=== PATIENT | male | born 2000 | race African-American/Black ===

== ENCOUNTER 2019-11-23 01:10 | Emergency (ER) | payer BC ==
[~2019-11-23] VITALS: Ht 170.2 cm; Wt 59.0 kg
[2019-11-23 02:40] VITALS: BP 125/60
[2019-11-23] MEDS ORDERED: AMOX500C PO (02:58)
--- NOTE | 2019-11-23 02:58 | PHYS DOC ---
Past Medical History Past Medical History: No Pertinent History Past Surgical History: No Surgical History Smoking Status: Never Smoker Alcohol Use: None General Adult EDM: Chief Complaint: SORE THROAT HPI: HPI: Patient is a 19 year old male who presents with complaint of sore throat that started yesterday. Patient indicates that he is noticed that his tonsils are swollen and covered with white pockets. He states that he has pain with swallowing. He denies any fever. He denies any chest pain or shortness of breath. [] Review of Systems: Review of Systems: Constitutional: Denies fever or chills. [] HENT: Complains of sore throat. [] Respiratory: Denies cough or shortness of breath. [] Cardiovascular: Denies chest pain or edema. [] Integument: Denies rash. [] Neurologic: Denies headache, focal weakness or sensory changes. [] Heart Score: Risk Factors: Risk Factors: DM, Current or recent (<one month) smoker, HTN, HLP, family history of CAD, obesity. Risk Scores: Score 0 - 3: 2.5% MACE over next 6 weeks - Discharge Home Score 4 - 6: 20.3% MACE over next 6 weeks - Admit for Clinical Observation Score 7 - 10: 72.7% MACE over next 6 weeks - Early Invasive Strategies Allergies: Allergies: Allergies Coded Allergies Type Severity Reaction Last Updated Verified No Known Drug Allergies 11/23/19 No Physical Exam: PE: Constitutional: Well developed, well nourished, no acute distress, non-toxic appearance. [] HENT: Normocephalic, atraumatic, with tonsillar erythema, swelling and exudates bilaterally. [] Eyes: PERRLA, EOMI, conjunctiva normal, no discharge. [] Neck: Normal range of motion, no tenderness, supple, with anterior cervical lymphadenopathy. [] Cardiovascular: Regular rate and rhythm [] Lungs & Thorax: Bilateral breath sounds clear to auscultation [] Current Patient Data: Vital Signs: Vital Signs Date Time Temp Pulse Resp B/P (MAP) Pulse Ox O2 Delivery O2 Flow Rate FiO2 11/23/19 02:40 97.8 78 18 125/60 (81) 97 Room Air 97.8 EKG: EKG: [] Radiology/Procedures: Radiology/Procedures: [] Course & Med Decision Making: Course & Med Decision Making Pertinent Labs and Imaging studies reviewed. (See chart for details) [] Dragon Disclaimer: Dragon Disclaimer: This electronic medical record was generated, in whole or in part, using a voice recognition dictation system. Departure Departure Impression: Primary Impression: Tonsillitis Disposition: HOME, SELF-CARE Condition: STABLE Referrals: JUAN KENT MD (PCP) Patient Instructions: Tonsillitis Scripts Amoxicillin (AMOXICILLIN) 500 Mg Capsule 2 CAP PO BID, #40 CAP Prov: PEÑA SOSA Jr. DO 11/23/19 Justicifation of Admission Dx: Justifications for Admission: Justification of Admission Dx: Comment: (Not applicable) PEÑA SOSA Jr. DO Nov 23, 2019 02:58
[2019-11-23] MEDS ORDERED: AMOXICILLIN 250 MG CAPSULE. PO ONE (03:30)
== END 2019-11-23 03:19 | disposition home or self-care (01) ==
LOC: ER 01:10
DX: J03.90 Acute tonsillitis, unspecified (principal)
CPT/HCPCS: 99283